=== PATIENT | female | born 1950 | race Hispanic/Latino ===

== ENCOUNTER 2020-09-18 11:21 | Emergency (ER) | payer OTHER ==
--- OUTSIDE RECORDS SUMMARY | 2020-09-18 11:25 | XMS REPORT | Continuity of Care Document ---
:[address] [facility] t Address [address] [place] [address] Care Team Providers Name Role Phone Unavailable Unavailable Unavailable Problems This patient has no known problems. Allergies, Adverse Reactions, Alerts This patient has no known allergies or adverse reactions. Medications Ordered Filled Start Stop Current Ordering Indication Dosage Frequency Signature Comments Components Source Medication Medication Date Date Medication? Clinician (SIG) Name Name Triamcinolo Triamcinolo 2018-04 Yes Yesenia [address] [facility] ne ne 1-22 [facility] applicatio [facility] - Acetonide Acetonide 00:00: n [facility] HydrOXYzine HydrOXYzine 2018-04 Yes Yesenia [address] [facility] HCl HCl 1-20 [facility] Lipitor Lipitor Yes Yesenia [address] [facility] in evening [facility] Vitamin C Vitamin C Yes Yesenia not [facility] defined [facility] [place] 3 500 [place] 3 500 Yes Yesenia [address] [facility] Multivitami Multivitami Yes Yesenia not [facility] & [facility]eral n & Mineral Millender defined [facility] Lisinopril Lisinopril Yes Yesenia [address] [facility] Immunizations Ordered Filled Immunization Date Status Comments Sourc e Immunization Name Name FLUZONE HIGH DOSE FLUZONE HIGH DOSE 2019-01-[address] [facility] - OVER 65 OVER 65 00:00:00 [facility] [place] [facility] TDAP > 7 TDAP > 7 2018-06-[address] [facility] - Years-Adacel Years-Adacel 00:00:00 [facility] Prevnar 13 Prevnar 13 2017-06-28 [facility] - -Pneumonia Vaccine -Pneumonia Vaccine 00:00:00 [facility] Procedures This patient has no known procedures. Encounters Start End Encounter Admission Attending Care Care Encounter Source Date/Time Date/Time Type Type Clinicians Facility Department ID 2020-09-02 2020-09-02 [facility] [id number] [facility] 2020-09-02 2020-09-02 [facility] [id number] [facility] 2020-06-20 2020-06-20 [facility] [id number] 2020-06-17 2020-06-17 [facility] [id number] [facility] 2020-04-29 2020-04-29 [facility] [id number] [facility] 2020-03-19 2020-03-19 [facility] [id number] [facility] 2020-01-15 2020-01-15 [facility] [id number] [facility] 2020-01-11 2020-01-11 [facility] [id number] [facility] 2019-07-12 2019-07-12 [facility] [id number] [facility] 10[facility]30[facility]00 10:30:00 [facility] 2019-02-23 2019-02-23 [facility] [id number] [facility] 10:54[facility]00 10:54:00 [facility] 2019-02-21 2019-02-21 [facility] [id number] [facility] 13:00[facility]00 13:00:00 [facility] 2019-01-10 2019-01-10 [facility] [id number] [facility] 14:40:00 14:40:00 [facility] 2018-08-01 2018-08-01 [facility] [id number] [facility] 14[facility]40:00 14:40:00 [facility] 2018-06-16 2018-06-16 [facility] [id number] [facility] 09:15:00 09:15:00 [facility] 2018-01-10 2018-01-10 [facility] [id number] [facility] 08:45:00 08:45:00 [facility] 2017-11-28 2017-11-28 [facility] [id number] [facility] 15:24:00 15:24:00 [facility] 2017-06-28 2017-06-28 [facility] [id number] 11:15:00 11:15:00 [facility] Results This patient has no known results.
--- NOTE | 2020-09-18 14:01 | RAD REPORT ---
EXAM DESCRIPTION: RAD - Wrist Right 3 View - 09/18/2020 1:40 pm CLINICAL HISTORY: PAIN Pain COMPARISON: <Comparisons> FINDINGS: Mild to moderate soft tissue swelling is seen about the wrist. No acute fracture or dislo cation seen.
--- NOTE | 2020-09-18 14:02 | RAD REPORT ---
EXAM DESCRIPTION: RAD - Wrist Left 3 View - 09/18/2020 1:40 pm CLINICAL HISTORY: PAIN Pain COMPARISON: Wrist Left 2 View dated 03/15/2016 FINDINGS: Mild arthritic changes involve the radiocarpal joint. Several degenerative cysts are pres ent in the distal ulna. Soft tissue swelling is present along the dorsum of the wrist. No acute frac ture seen.
--- NOTE | 2020-09-18 15:53 | RAD REPORT ---
EXAM DESCRIPTION: US - UPPER EXTREMITY VENOUS BILAT - 09/18/2020 3:37 pm CLINICAL HISTORY: Upper extremity swelling. COMPARISON: None. TECHNIQUE: Real-time sonographic evaluation of the bilateral upper extremity deep venous system was performed. FINDINGS: Normal compressibility, flow augmentation, phasic flow and spontaneous flow is identified in the bilateral upper extremity deep venous system. No intraluminal filling defects seen. IMPRESSION: No DVT in the bilateral upper extremities venous systems.
--- NOTE | 2020-09-18 16:02 | ER ---
Nurse's Notes [facility] Name: Marylou Zuniga Age: 69 yrs Sex: Female : 1950 Arrival Date: 09/18/2020 Time: 11:29 Bed 12 Private MD: Diagnosis: Pain in right wrist;Pain in left wrist Presentation: 09/18 11:40 Chief complaint: Patient states: both of my wrist are swelling for about a month now, tw2 but my doctor told me told come in after the pills she gave me on the 2nd didn't work. she gave me steroids. Coronavirus screen: At this time, the client does not indicate any symptoms associated with coronavirus-19. Ebola Screen: Patient denies travel to an Ebola-affected area in the 21 days before illness onset. Initial Sepsis Screen: Does the patient meet any 2 criteria? No. Patient's initial sepsis screen is negative. Does the patient have a suspected source of infection? No. Patient's initial sepsis screen is negative. Risk Assessment: Do you want to hurt yourself or someone else? Patient reports no desire to harm self or others. Onset of symptoms was September 18, 2020. 11:40 Method Of Arrival: Ambulatory tw2 11:40 Acuity: MELANI 4 tw2 Triage Assessment: 11:44 General: Appears in no apparent distress. obese, well groomed, Behavior is calm, tw2 cooperative, appropriate for age. Pain: Complains of pain in b/l wrist. 13:56 EENT: No signs and/or symptoms were reported regarding the EENT system. Neuro: Level of iw Consciousness is awake, alert, obeys commands, Oriented to person, place, time, situation. Respiratory: Airway is patent Respiratory effort is even, unlabored, Respiratory pattern is regular, symmetrical. Musculoskeletal: Range of motion: intact in all extremities, Swelling present in b/l left and right wrist. Historical: - Allergies: 11:44 No Known Allergies; tw2 - Home Meds: 11:44 lisinopril 5 mg Oral tab 1 tab once daily [Active]; atorvastatin 20 mg oral tab 1 tab tw2 once daily [Active]; - PMHx: 11:44 Hypertension; Hyperlipidemia; tw2 - PSHx: 11:44 Appendectomy; Hysterectomy; tw2 - Immunization history:: Adult Immunizations. - Social history:: Smoking status: . Screenin:57 Abuse screen: Denies threats or abuse. Nutritional screening: No deficits noted. iw Tuberculosis screening: No symptoms or risk factors identified. Fall Risk None identified. Assessment: 16:11 Reassessment: Patient appears in no apparent distress at this time. No changes from tw2 previously documented assessment. Patient and/or family updated on plan of care and expected duration. Pain level reassessed. Patient is alert, oriented x 3, equal unlabored respirations, skin warm/dry/pink. pt states "oh my goodness that feels so good already on my right wrist". Vital Signs: 11:40 BP 148 / 91; Pulse 85; Resp 17; Temp 99.2(TE); Pulse Ox 97% on R/A; Weight 104.33 kg tw2 (M); Height 5 ft. 2 in. (157.48 cm); Pain 8/10; 11:40 Body Mass Index 42.07 (104.33 kg, 157.48 cm) tw2 ED Course: 11:29 Patient arrived in ED. wm 11:42 Triage completed. tw2 11:44 Arm band placed on. tw2 12:44 Bed in low position. Call light in reach. Pulse ox on. NIBP on. iw 13:09 Manuel Harris PA is PHCP. cp 13:09 Kamaljit Hammond MD is Attending Physician. cp 13:40 XRAY Wrist LEFT 3 view In Process Unspecified. EDMS 13:40 XRAY Wrist RIGHT 3 view In Process Unspecified. EDMS 15:36 UPPER EXTREMITY VENOUS BILAT In Process Unspecified. EDMS 16:11 Georgia Saldana RN is Primary Nurse. tw2 16:11 No provider procedures requiring assistance completed. Patient did not have IV access tw2 during this emergency room visit. Administered Medications: No medications were administered Outcome: 16:01 Discharge ordered by . cp 16:11 Discharged to home ambulatory. tw2 16:11 Condition: stable 16:11 Discharge instructions given to patient, Instructed on discharge instructions, follow up and referral plans. no drinking with medication, no driving heavy equipment, medication usage, safety practices, CMS checks Demonstrated understanding of instructions, follow-up care, medications, CMS checks 16:12 Patient left the ED. tw2 Signatures: Dispatcher [employer] Chey Pride RN RN iw Manuel Harris PA PA cp Wise, Tara, RN RN tw2 Gin Tony Corrections: (The following items were deleted from the chart) 13:57 11:44 Pain: Complains of pain in b/l wrist tw2 iw
--- NOTE | 2020-09-18 16:02 | EDPHYS ---
Physician Documentation [facility] Name: Marylou Zuniga Age: 69 yrs Sex: Female : 1950 Arrival Date: 09/18/2020 Time: 11:29 Bed 12 Private MD: ED Physician Kamaljit Hammond HPI: 09/18 13:20 This 69 yrs old Female presents to ER via Ambulatory with complaints of Wrist cp Pain - SWELLING. 13:20 The patient or guardian reports pain, swelling, tenderness. The complaints affect the cp left wrist diffusely, right wrist diffusely. Context: resulted from an unknown cause. Onset: The symptoms/episode began/occurred 1 month(s) ago. Modifying factors: the symptoms are aggravated by movement. Associated signs and symptoms: Pertinent positives: radiating pain up arms, Pertinent negatives: cyanosis distally, decreased sensation distally. Patient reports primary care physician prescribed medicine for pain and swelling with no improvement. Historical: - Allergies: 11:44 No Known Allergies; tw2 - Home Meds: 11:44 lisinopril 5 mg Oral tab 1 tab once daily [Active]; atorvastatin 20 mg oral tab 1 tab tw2 once daily [Active]; - PMHx: 11:44 Hypertension; Hyperlipidemia; tw2 - PSHx: 11:44 Appendectomy; Hysterectomy; tw2 - Immunization history:: Adult Immunizations. - Social history:: Smoking status: . ROS: 13:25 Constitutional: Negative for body aches, chills, fever, poor PO intake. cp 13:25 Eyes: Negative for injury, pain, redness, and discharge. cp 13:25 Neck: Negative for pain with movement, pain at rest, stiffness. 13:25 Cardiovascular: Negative for chest pain, palpitations. 13:25 Respiratory: Negative for cough, shortness of breath, wheezing. 13:25 Abdomen/GI: Negative for abdominal pain, nausea, vomiting, and diarrhea. 13:25 MS/extremity: Positive for pain, swelling, tenderness, of the left wrist and right wrist, Negative for injury or acute deformity, decreased range of motion, paresthesias. 13:25 Skin: Negative for cellulitis, rash. 13:25 Neuro: Negative for numbness, tingling, weakness. 13:25 All other systems are negative. Exam: 14:45 Head/Face: Normocephalic, atraumatic. cp 14:45 Constitutional: The patient appears in no acute distress, alert, awake, non-diaphoretic, non-toxic, well developed, well nourished. 14:45 Eyes: Periorbital structures: appear normal, Conjunctiva: normal, no exudate, no injection, Sclera: no appreciated abnormality, Lids and lashes: appear normal, bilaterally. 14:45 ENT: External ear(s): are unremarkable, Nose: is normal, Mouth: Lips: moist, Oral mucosa: moist, Posterior pharynx: Airway: no evidence of obstruction, patent. 14:45 Neck: ROM/movement: is normal, is supple, without pain, no range of motions limitations. 14:45 Chest/axilla: Inspection: normal. 14:45 Cardiovascular: Rate: normal, Rhythm: regular, Pulses: Pulses are 2+ in right radial artery and left radial artery. Edema: is not appreciated, JVD: is not appreciated. 14:45 Respiratory: the patient does not display signs of respiratory distress, Respirations: normal, no use of accessory muscles, no retractions, labored breathing, is not present, Breath sounds: are clear throughout, no decreased breath sounds. 14:45 Abdomen/GI: Exam negative for discomfort, distension, guarding, Inspection: abdomen appears normal. 14:45 Back: pain, is absent, ROM is normal. 14:45 Musculoskeletal/extremity: Extremities: grossly normal except: noted in the left wrist and right wrist: pain, swelling, tenderness, There is no evidence of decreased ROM, deformity, erythema, ROM: limited passive range of motion due to pain, in the left wrist and right wrist, Sensation intact. 14:45 Skin: cellulitis, is not appreciated, no rash present. Vital Signs: 11:40 BP 148 / 91; Pulse 85; Resp 17; Temp 99.2(TE); Pulse Ox 97% on R/A; Weight 104.33 kg tw2 (M); Height 5 ft. 2 in. (157.48 cm); Pain 8/10; 11:40 Body Mass Index 42.07 (104.33 kg, 157.48 cm) tw2 MDM: 13:15 Patient medically screened. cp 15:00 Differential diagnosis: closed fracture, DVT, cellulitis, arthritis. cp 16:00 Data reviewed: vital signs, nurses notes, radiologic studies, plain films, ultrasound. 16:00 Counseling: I had a detailed discussion with the patient and/or guardian regarding: the cp historical points, exam findings, and any diagnostic results supporting the discharge/admit diagnosis, radiology results, the need for outpatient follow up, a family practitioner, to return to the emergency department if symptoms worsen or persist or if there are any questions or concerns that arise at home. Response to treatment: the patient's symptoms have mildly improved after treatment. ED course: VSS. Radiology results negative for DVT and fracture. Wrist braces recommended for comfort/support. Will discharge to home for continued monitoring. 09/18 13:16 Order name: XRAY Wrist LEFT 3 view; Complete Time: 15:16 cp 09/18 15:16 Interpretation: Report reviewed. 09/18 13:16 Order name: XRAY Wrist RIGHT 3 view; Complete Time: 15:16 cp 09/18 15:16 Interpretation: Report reviewed. 09/18 14:25 Order name: UPPER EXTREMITY VENOUS BILAT; Complete Time: 15:57 EDMO 09/18 15:57 Interpretation: Report reviewed. 09/18 15:58 Order name: Wrist Splint: bilateral; Complete Time: 16:12 cp Administered Medications: No medications were administered Disposition: 09/18/20 16:01 Discharged to Home. Impression: Pain in right wrist, Pain in left wrist. - Condition is Stable. - Discharge Instructions: Wrist Pain. - Prescriptions for Mobic 7.5 mg Oral Tablet - take 1 tablet by ORAL route once daily take with food; 20 tablet. Tramadol 50 mg Oral Tablet - take 1 tablet by ORAL route every 8 hours as needed; 12 tablet. - Medication Reconciliation Form, Thank You Letter, Antibiotic Education, Prescription Opioid Use form. - Follow up: Private Physician; When: 1 week; Reason: Recheck today's complaints. - Problem is new. - Symptoms have improved. Addendum: 09/20/2020 07:04 Co-signature as Attending Physician, Kamaljit Hammond MD I agree with the assessment and [facility] plan of care. Signatures: Dispatcher [employer] EDMO Kamaljit Hammond MD MD [facility] Manuel Harris PA PA Georgia Saldana RN RN tw2 Corrections: (The following items were deleted from the chart) 09/18 14:25 13:17 Extrem Venous W Compression [id number] ordered. EDMS EDMS 16:12 16:01 09/18/2020 16:01 Discharged to Home. Impression: Pain in right wrist; Pain in tw2 left wrist. Condition is Stable. Forms are Medication Reconciliation Form, Thank You Letter, Antibiotic Education, Prescription Opioid Use. Follow up: Private Physician; When: 1 week; Reason: Recheck today's complaints. Problem is new. Symptoms have improved. cp
[2020-09-18 16:17] VITALS: BP 148/91; TEMP 99.2; O2SAT 97
== END 2020-09-18 16:12 | disposition home or self-care (01) ==
LOC: ER 11:21
DX: M25.532 Pain in left wrist (principal); M25.531 Pain in right wrist; I10 Essential (primary) hypertension; E78.5 Hyperlipidemia, unspecified
CPT/HCPCS: 93970

== ENCOUNTER 2020-12-11 07:28 | Day surgery (SDC) | payer OTHER ==
[2020-12-10 12:25] LABS: Albumin 3.9 g/dL (3.4-5.0); Bilirubin Direct 0.4 mg/dL (0-0.2); Bilirubin Total 1.2 mg/dL (0.2-1.0); Potassium 4.4 mmol/L (3.5-5.1); Protein, Total 8.5 g/dL (6.4-8.2)
[2020-12-10 12:26] LABS: Absolute Lymphocytes (CBC) 1.3 K/uL (0.7-4.9); Basophils % 1.3 % (0-1.3); Hematocrit 36.7 % (36.0-45.0); Lymphocytes % 28.5 % (15.3-44.8); MPV 9.8 fL (7.6-11.3); RBC Red Blood Cell Count 3.99 M/uL (3.86-4.86)
--- NOTE | 2020-12-10 13:30 | RAD REPORT ---
EXAM DESCRIPTION: RAD - Chest Pa And Lat (2 Views) - 12/10/2020 1:16 pm CLINICAL HISTORY: pre op COMPARISON: No comparisons FINDINGS: Lines: None. Lungs: No evidence of edema or pneumonia. Pleural: No significant pleural effusions or pneumothorax. Cardiac: The heart size is within normal limits. Bones: No acute fractures. Other: IMPRESSION: No acute cardiopulmonary disease.
[2020-12-11] MEDS ORDERED: Ringers Lactate 1,000 ML IV ONE (08:16)
[2020-12-11] MEDS ORDERED: CEFOXITIN/SWI 1gm 1 GM/10 ML SYR ONE (08:16)
[2020-12-11] MEDS ORDERED: KETOROLAC 30 MG/ML INJ ONE (08:26)
[2020-12-11] MEDS ORDERED: propofoL 200 MG/20 ML VIAL IV ONE (08:26)
[2020-12-11] MEDS ORDERED: FENTANYL CITR 100 MCG/2 ML ONE ×2 (08:26→10:06)
[2020-12-11] MEDS ORDERED: ONDANSETRON 4 MG/2 ML VIAL ONE ×2 (08:27→10:38)
[2020-12-11] MEDS ORDERED: dexAMETHasone 4 MG/ML VIAL ONE (08:27)
[2020-12-11] MEDS ORDERED: LIDOCAINE 2% MPF 5 ML VIAL ONE (08:27)
[2020-12-11] MEDS ORDERED: BUPIVACAINE 0.5% PF 10 ML VIAL ONE (08:31)
[2020-12-11] MEDS ORDERED: ROCURONIUM 50 MG/5 ML VIAL IV ONE (08:37)
[2020-12-11] MEDS ORDERED: GLYCOPYRROLATE 0.2 MG/ML SYR ONE (10:02)
[2020-12-11] MEDS ORDERED: NEOSTIGMINE 1 MG/ML -5 ML ONE (10:06)
[2020-12-11] MEDS: HYDROMORPHONE HCL 1 MG/ML INJ ONE ×5 (10:15→10:33)
--- NOTE | 2020-12-11 10:24 | OP ---
Date of Procedure: 12/11/2020 Surgeon: Maurice Chamberlain MD Organ Builder: Neo Campos, assistant golf professional certified. Preoperative Diagnoses: Chronic cholecystitis, cholelithiasis, history of elevated LFTs with a negat sang MRCP. Postoperative Diagnoses: Chronic cholecystitis, cholelithiasis, history of elevated LFTs with a nega tive MRCP. Procedure: Laparoscopic cholecystectomy. Estimated Blood Loss: Minimal. Specimen: Gallbladder. Finding: As above. Anesthesia: General. Complications: None. Disposition: The patient tolerated the procedure in stable condition and taken to Recovery in good g eneral condition. Procedure In Detail: The patient was brought to the OR and placed in supine position. General anest hesia begun. The patient was prepped and draped in the sterile fashion. Marcaine 0.5% was infiltrat ed locally. A 15-blade was used to make a 1 cm supraumbilical midline incision. Subcutaneous tissue s divided. Fascia indentified and divided. A #1 Vicryl stay suture was placed. Peritoneal cavity w as entered with sharp and blunt dissection. A 12 mm trocar was placed into the peritoneal cavity und er direct vision. Pneumoperitoneum was established. Then, three 5 mm trocars were placed, 1 in the epigastrium just to the right of midline and 2 in the right subcostal region. The patient did have s ome adhesions in the lower abdomen away from the gallbladder. Fundus of the gallbladder retracted santos periorly. Infundibulum was identified and retracted inferolaterally. Cystic duct and cystic artery were clearly identified with blunt dissection. Clips were placed. Both structures were divided. Ca utery used to remove the gallbladder from the liver bed. Bleeding on the liver bed was controlled wi th cautery. Gallbladder was retrieved through the umbilicus via an EndoCatch bag. The right upper q uadrant was irrigated. Effluent was clear. No evidence of bleeding or bile leakage appreciated. Santos bsequently, all trocars were removed under direct vision. Stay sutures were tied to each other to re approximate the fascial defect. Subcutaneous wounds were irrigated. Bleeding was controlled with ca utery. A 3-0 chromic used to approximate the subcutaneous tissue and a 4-0 Monocryl used to close th e subcutaneous tissue and close the skin. Sterile dressing applied. The patient was awakened and ta garry to Recovery in good general condition. Discharge Note: The patient will go to Day Surgery and home when stable. Disposition: Home. Condition: Stable. Discharge Instructions: Resume home medications and diet. Activity as tolerated. No heavy lifting. Remove outer dressing in 2 days. Shower. Keep wound clean, dry. Keep Steri-Strips on at all time s. Follow up in my office in a week. Call for appointment. Tylenol No.3 one tablet p.o. q.4 p.r.n. pain. /MODL Voice ID: [id number] Report ID: [id number]
[2020-12-11] MEDS ORDERED: MEPERIDINE HCL 25 MG/ML SYR ONE (10:38)
[2020-12-11 11:04] VITALS: O2SAT 96
[2020-12-11] MEDS ORDERED: HYDROCODONE/APAP 7.5/325 MG TAB PO ONE (11:20)
[2020-12-11] MEDS ORDERED: CELECOXIB 100 MG CAPSULE ONE (11:25)
[2020-12-11] MEDS ORDERED: ACETAMINOPHEN 500 MG TAB ONE (11:25)
[2020-12-11] MEDS ORDERED: HYDROCODONE/APAP 7.5/325 MG TAB ONE (11:44)
[2020-12-11 11:54] VITALS: BP 110/67; TEMP 97.6
== END 2020-12-11 11:48 | disposition home or self-care (01) ==
LOC: OR 07:28
PROVIDERS: ATTEND Surgery
PROC: 0FT44ZZ Resection of Gallbladder, Percutaneous Endoscopic Approach (ICD-10-PCS; principal; 2020-12-11 09:00)
DX: K80.10 Calculus of gallbladder with chronic cholecystitis without obstruction (principal); Z20.822 Contact with and (suspected) exposure to COVID-19
CPT/HCPCS: 93005; 85025; 80048; 36415; 82150; 80076; 88304; 71046; 47562; U0003; J2704; J1100; J3010 ×2; J2175; J1170 ×2; J2710; J7120; J2405 ×2